=== PATIENT | female | born 1990 | race Caucasian/White ===

== ENCOUNTER → 2016-12-02 | Outpatient (CLI) | payer BC, OTHER ==
--- NOTE | 2016-12-02 14:12 | Diagnostic Imaging Report ---
PROCEDURE: MR imaging cervical spine without contrast. TECHNIQUE: Multiplanar, multisequence MR imaging of the cervical spine was performed without contrast. INDICATION: Cervical radiculopathy. Right shoulder and right hand numbness. FINDINGS: There is reversal of the lordotic curvature in the cervical spine. The vertebral body heights are preserved. There is [id number] disc height loss at the C5-C6 level. Disc desiccation is also noted at this disc level. Other discs demonstrate only mild desiccation without disc height loss. There is no significant marrow signal abnormality. The spinal cord is normal in caliber, contour and signal. The foramen magnum and the upper cervical canal are widely patent. C2-C3: There is no disc herniation, no spinal canal or foraminal stenosis. C3-C4: There is no disc herniation. There is no spinal canal or foraminal stenosis. C4-C5: There is no disc herniation, no spinal canal or foraminal stenosis. C5-C6: There is a spur disc complex asymmetric to the right side associated with moderate spinal canal stenosis. This reduces the AP dimension of the central canal to 7 mm and results in flattening of the anterior margin of the cord suggestive of minimal cord compression more prominent along the right side of the spinal canal. No cord signal abnormality. There is no foraminal stenosis. C6-C7: There is no disc herniation, no spinal canal or foraminal stenosis. C7-T1: No disc herniation, no spinal canal or foraminal stenosis. IMPRESSION: There is a disc spur complex asymmetric to the right side at the C5-C6 level resulting in moderate spinal canal stenosis with minimal cord compression. No cord signal abnormalities seen however. Dictated by: Dictated on workstation # [id number]
== END ==
LOC: RAD 12:55
PROVIDERS: ATTEND Orthopaedic Surgery
DX: M46.02 Spinal enthesopathy, cervical region (principal); M48.02 Spinal stenosis, cervical region
CPT/HCPCS: 72141

== ENCOUNTER 2017-01-14 08:02 | Outpatient (RCR) | payer BC | END 2017-01-24 | disposition home or self-care (01) | PROVIDERS: ATTEND Physician Assistant | DX: M50.222 Other cervical disc displacement at C5-C6 level (principal) ==

== ENCOUNTER 2021-02-08 10:45 | Outpatient (CLI) | payer SELFPAY ==
[~2021-02-08] VITALS: Ht 162.6 cm; Wt 84.1 kg
[~2021-02-08 10:45] MED LIST: ACETAMINOPHEN 500 MG TAB (TYLENOL) PO PRN; CASIRIVIMAB/IMDEVIMAB 1,200 MG in NS (IVPB) 250 ML IV ONE; EPINEPHrine INJECTION 1 MG/ML AMP IM PRN; ONDANSETRON 4 MG/2 ML (SDV) Z0FRAN IV PRN; diphenhydrAMINE 50 MG/ML INJ (BENADRYL) IV PRN
[2021-02-08 10:48] VITALS: BP 132/69
[2021-02-08 12:42] VITALS: BP 122/60
== END 2021-02-08 12:45 | disposition home or self-care (01) ==
LOC: INFUSION 10:45
PROVIDERS: ATTEND Physician Assistant
DX: U07.1 COVID-19 (principal)